=== PATIENT | male | born 1975 | race American Indian/Alaskan Native ===

== ENCOUNTER 2018-06-23 12:54 | Emergency (ER) | payer OTHER ==
[2018-06-23 13:08] VITALS: BP 147/106
[2018-06-23] MEDS ORDERED: IBUPROFEN PO ONE (13:13)
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
--- NOTE | 2018-06-23 14:20 | XRay Report ---
AP AND LATERAL CERVICAL SPINE: History: Left-sided neck pain. The vertebral bodies are well mineralized and normal in alignment and vertebral height with well preserved interspace distances. The visualized portions of the posterior elements are normal. IMPRESSION: Normal study.
== END 2018-06-23 14:32 | disposition home or self-care (01) ==
LOC: ED 12:54
DX: S13.4XXA Sprain of ligaments of cervical spine, initial encounter (principal); V49.49XA Driver injured in collision with other motor vehicles in traffic accident, initial encounter; Y93.89 Activity, other specified; Y92.410 Unspecified street and highway as the place of occurrence of the external cause; Y99.8 Other external cause status
CPT/HCPCS: 72040